=== PATIENT | female | born 1985 | race Caucasian/White ===

== ENCOUNTER 2017-07-08 13:06 | Emergency (ER) | payer OTHER ==
[2017-07-08 13:20] VITALS: BP 119/81
--- NOTE | 2017-07-08 14:19 | ER Document Report ---
ED Medical Screen (RME) - General Chief Complaint: Abdominal Pain Stated Complaint: ABDOMINAL PAIN Time Seen by Provider: 07/08/17 14:14 Mode of Arrival: Ambulatory Information source: Patient Notes: 31 yr old female presents with sudden 1 hour duration of RLQ pain. pt denies any vaginal bleeding discharge or urinary complaints I have greeted and performed a rapid initial assessment of this patient. A comprehensive ED assessment and evaluation of the patient, analysis of test results and completion of the medical decision making process will be conducted by additional ED providers. PHYSICAL EXAMINATION: GENERAL: Well-appearing, well-nourished and in no acute distress. HEAD: Atraumatic, normocephalic. EYES: Pupils equal round extraocular movements intact, conjunctiva are normal. ENT: Nares patent NECK: Normal range of motion LUNGS: No respiratory distress Musculoskeletal: Normal range of motion NEUROLOGICAL: Normal speech, normal gait. PSYCH: Normal mood, normal affect. SKIN: Warm, Dry, normal turgor, no rashes or lesions noted. TRAVEL OUTSIDE OF THE [place] IN LAST 30 DAYS: No - Related Data Allergies/Adverse Reactions: bupropion [From Wellbutrin] Allergy (Unknown, Verified 07/08/17 14:13) diphenhydramine [From Benadryl] Allergy (Verified 07/08/17 13:08) Past Medical History Psychiatric Medical History: Reports: Hx Anxiety Physical Exam - Vital signs Vitals: Temp Pulse Resp BP Pulse Ox 98.9 F 96 16 119/81 98 07/08/17 13:18 07/08/17 13:18 07/08/17 13:18 07/08/17 13:18 07/08/17 13:18 Course - Vital Signs Vital signs: Temp Pulse Resp BP Pulse Ox 98.9 F 96 16 119/81 98 07/08/17 13:18 07/08/17 13:18 07/08/17 13:18 07/08/17 13:18 07/08/17 13:18
--- NOTE | 2017-07-08 14:49 | ER Document Report ---
ED General - General Chief Complaint: Abdominal Pain Stated Complaint: ABDOMINAL PAIN Time Seen by Provider: 07/08/17 14:14 Mode of Arrival: Ambulatory Information source: Patient Notes: 31-year-old female with history of fibrodysplasia, chronic headache, presents with complaint of sudden onset of right lower quadrant pain that started 2 hours prior to arrival. Patient states while at work she experienced a stabbing pain in her right lower quadrant. She denies any prior similar symptoms. She had associated nausea without vomiting. She denies any fever, chills, dysuria, hematuria, vaginal discharge. She is sexually active with her . Not currently on control. Last menstrual period 1 month prior to arrival. TRAVEL OUTSIDE OF THE [place] IN LAST 30 DAYS: No - HPI Onset: Just prior to arrival Onset/Duration: Sudden, Constant Quality of pain: Stabbing Severity: Moderate Pain Level: 2 Associated symptoms: Nausea. denies: Chills, Diarrhea, Fever, Vomiting Exacerbated by: Movement Relieved by: Denies Similar symptoms previously: No Recently seen / treated by doctor: No - Related Data Allergies/Adverse Reactions: bupropion [From Wellbutrin] Allergy (Unknown, Verified 07/08/17 14:13) diphenhydramine [From Benadryl] Allergy (Verified 07/08/17 13:08) Past Medical History - General Information source: Patient - Social History Smoking Status: Current Every Day Smoker Chew tobacco use (# tins/day): No Frequency of alcohol use: Occasional Drug Abuse: None Family History: Reviewed & Not Pertinent Patient has suicidal ideation: No Patient has homicidal ideation: No - Medical History Notes: Fibromyalgia, chronic headaches, fibrodysplasia. Pulmonary Medical History: Reports: None EENT Medical History: Reports: None Neurological Medical History: Reports: None Endocrine Medical History: Reports: None Renal/ Medical History: Denies: Hx Kidney Stones, Hx Peritoneal Dialysis, Hx Renal Insufficiency Malignancy Medical History: Reports: None GI Medical History: Reports: None Musculoskeltal Medical History: Reports Hx Fibromyalgia Skin Medical History: Reports None Psychiatric Medical History: Reports: None, Hx Anxiety Other: craniotomy - Immunizations Immunizations up to date: Yes Review of Systems - Review of Systems Constitutional: denies: Chills, Fever EENT: No symptoms reported Cardiovascular: No symptoms reported Respiratory: No symptoms reported Gastrointestinal: Abdomen distended, Nausea. denies: Vomiting, Black stools, Rectal bleeding Genitourinary: Flank pain. denies: Burning, Dysuria, Discharge, Hematuria Female Genitourinary: Last menstrual period - 06/16/17 Musculoskeletal: No symptoms reported Skin: No symptoms reported Hematologic/Lymphatic: No symptoms reported Neurological/Psychological: No symptoms reported Physical Exam - Vital signs Vitals: Temp Pulse Resp BP Pulse Ox 98.9 F 96 16 119/81 98 07/08/17 13:18 07/08/17 13:18 07/08/17 13:18 07/08/17 13:18 07/08/17 13:18 - General General appearance: Appears well, Alert - Respiratory Respiratory status: No respiratory distress Chest status: Nontender Breath sounds: Normal Chest palpation: Normal - Cardiovascular Rhythm: Regular Heart sounds: Normal auscultation Murmur: No - Abdominal Inspection: Normal Distension: No distension Bowel sounds: Normal Tenderness: Nontender, Tender, Other - RLQ. No: McBurney's point, Quiros's sign Organomegaly: No organomegaly - Genitourinary External exam: No: Lesions Speculum exam: Normal. No: Lesions Vaginal bleeding: None Bimanuel exam: Normal. No: Cervical motion tender, Adnexal mass - Back Back: Normal, Nontender, CVA tenderness - left - Extremities General upper extremity: Normal inspection, Nontender, Normal color, Normal ROM , Normal temperature General lower extremity: Normal inspection, Nontender, Normal color, Normal ROM , Normal temperature, Normal weight bearing. No: Sameera's sign - Neurological Neuro grossly intact: Yes Cognition: Normal Orientation: AAOx4 [place] Coma Scale Eye Opening: Spontaneous [place] Coma Scale Verbal: Oriented [place] Coma Scale Motor: Obeys Commands [place] Coma Scale Total: 15 Speech: Normal Motor strength normal: LUE, RUE, LLE, RLE Sensory: Normal - Psychological Associated symptoms: Normal affect, Normal mood - Skin Skin Temperature: Warm Skin Moisture: Dry Skin Color: Normal Course - Re-evaluation Re-evalutation: 07/08/17 16:46 31-year-old female presents with complaint of right lower quadrant pain that started 2 hours prior to arrival. Upon arrival vitals reviewed and within normal limits. Patient does not appear toxic or dehydrated. She is in no acute distress. Physical exam is significant for right lower quadrant tenderness and left CVA tenderness. Patient received Toradol for pain. Bedside ultrasound was performed and showed no significant hydronephrosis. pelvic exam was within normal limits. CT of the abdomen and pelvis was obtained to assess for nephrolithiasis. This was within normal limits. Transvaginal ultrasound to assess for ovarian torsion was also performed and within normal limits. Patient was discharged home in improved condition. Advised to follow-up with her primary care physician. 07/08/17 18:48 Laboratory 07/08/17 07/08/17 07/08/17 14:20 14:20 14:20 WBC 10.5 RBC 4.47 Hgb 12.6 Hct 37.6 MCV 84 MCH 28.1 MCHC 33.4 RDW 15.4 H Plt Count 268 Seg Neutrophils % 66.6 Lymphocytes % 23.6 Monocytes % 5.2 Eosinophils % 4.2 Basophils % 0.4 Absolute Neutrophils 7.0 Absolute Lymphocytes 2.5 Absolute Monocytes 0.5 Absolute Eosinophils 0.4 Absolute Basophils 0.0 Sodium 141.3 Potassium 4.0 Chloride 105 Carbon Dioxide 25 Anion Gap 11 BUN 11 Creatinine 0.73 Est GFR ( Amer) > 60 Est GFR (Non-Af Amer) > 60 Glucose 84 Calcium 9.7 Total Bilirubin 0.4 Direct Bilirubin 0.3 Neonat Total Bilirubin Not Reportable Neonat Direct Bilirubin Not Reportable Neonat Indirect Bili Not Reportable AST 14 ALT 19 Alkaline Phosphatase 52 Total Protein 7.5 Albumin 4.6 Lipase 66.2 Urine Color YELLOW Urine Appearance CLEAR Urine pH 6.0 Ur Specific [place] 1.010 Urine Protein NEGATIVE Urine Glucose (UA) NEGATIVE Urine Ketones NEGATIVE Urine Blood NEGATIVE Urine Nitrite NEGATIVE Urine Bilirubin NEGATIVE Urine Urobilinogen NEGATIVE Ur Leukocyte Esterase NEGATIVE Urine WBC (Auto) 1 Urine RBC (Auto) 0 Urine Bacteria (Auto) TRACE Squamous Epi Cells Auto 1 Urine Mucus (Auto) RARE Urine Ascorbic Acid NEGATIVE Urine HCG, Qual NEGATIVE Epi Cells (Wet Prep) Bacteria (Wet Prep) Trichomonas (Wet Prep) Vaginal WBC Vaginal RBC Vaginal Yeast Chlamydia DNA (PCR) N.gonorrhoeae DNA (PCR) 07/08/17 07/08/17 15:15 15:15 WBC RBC Hgb Hct MCV MCH MCHC RDW Plt Count Seg Neutrophils % Lymphocytes % Monocytes % Eosinophils % Basophils % Absolute Neutrophils Absolute Lymphocytes Absolute Monocytes Absolute Eosinophils Absolute Basophils Sodium Potassium Chloride Carbon Dioxide Anion Gap BUN Creatinine Est GFR ( Amer) Est GFR (Non-Af Amer) Glucose Calcium Total Bilirubin Direct Bilirubin Neonat Total Bilirubin Neonat Direct Bilirubin Neonat Indirect Bili AST ALT Alkaline Phosphatase Total Protein Albumin Lipase Urine Color Urine Appearance Urine pH Ur Specific [place] Urine Protein Urine Glucose (UA) Urine Ketones Urine Blood Urine Nitrite Urine Bilirubin Urine Urobilinogen Ur Leukocyte Esterase Urine WBC (Auto) Urine RBC (Auto) Urine Bacteria (Auto) Squamous Epi Cells Auto Urine Mucus (Auto) Urine Ascorbic Acid Urine HCG, Qual Epi Cells (Wet Prep) 4+ EPITHELIALS SEEN Bacteria (Wet Prep) 4+ BACTERIA SEEN Trichomonas (Wet Prep) NO TRICHOMONAS SEEN Vaginal WBC 1+ WBCS SEEN Vaginal RBC NO RBCS SEEN Vaginal Yeast NO YEAST SEEN Chlamydia DNA (PCR) NOT DETECTED N.gonorrhoeae DNA (PCR) NOT DETECTED Abdomen/Pelvis CT 07/08/17 15:22 IMPRESSION: NO SIGNIFICANT OR ACUTE PROCESS IN THE ABDOMEN OR PELVIS. Transvaginal US 07/08/17 16:22 IMPRESSION: NORMAL TRANSVAGINAL PELVIC ULTRASOUND. - Vital Signs Vital signs: Temp Pulse Resp BP Pulse Ox 98.9 F 96 16 119/81 98 07/08/17 13:18 07/08/17 13:18 07/08/17 13:18 07/08/17 13:18 07/08/17 13:18 - Laboratory Result Diagrams: 07/08/17 14:20 07/08/17 14:20 Laboratory results interpreted by me: 07/08/17 14:20 RDW 15.4 H Procedures - Pelvic Exam Pelvic exam Cultures obtained: Yes Wet prep obtained: Yes Herpes culture obtained: No POC sent to lab: Yes Bimanual exam performed: Yes - Cervical motion tenderness, no adnexal tenderness or masses. Discharge - Discharge Clinical Impression: Right lower quadrant abdominal pain Condition: Good Disposition: HOME, SELF-CARE Instructions: Abdominal Pain ([facility]), Antinausea Medication ([facility]), Toradol Injection ([facility]) Additional Instructions: strain your urine. [place] Return to the emergency department with worsening or recurring pain. Prescriptions: Hydrocodone/Acetaminophen [[place] 5-325 mg Tablet] 1 tab PO Q6 2 Days #8 tablet Ondansetron HCl [Zofran 4 mg Tablet] 1 - 2 tab PO Q4H PRN #10 tablet PRN Reason: Forms: Return to Work
[2017-07-08 14:52] LABS: ABSOLUTE EOSINOPHILS # (AUTO) 0.4 10^3/uL (0.0-0.6); ABSOLUTE LYMPHOCYTES (AUTO) 2.5 10^3/uL (0.5-4.7); ABSOLUTE MONOCYTES (AUTO) 0.5 10^3/uL (0.1-1.4); APPEARANCE,URINE CLEAR; BASOPHILS % (AUTO) 0.4 % (0-2); BILIRUBIN,URINE NEGATIVE (NEGATIVE); COLOR,URINE YELLOW; EOSINOPHILS % (AUTO) 4.2 % (0-6); GLUCOSE, URINE NEGATIVE (NEGATIVE); HEMATOCRIT 37.6 % (36.0-47.0); HEMOGLOBIN 12.6 g/dL (12.0-15.5); KETONES,URINE NEGATIVE (NEGATIVE); LEUKOCYTE ESTERASE,URINE NEGATIVE (NEGATIVE); LYMPHOCYTES % (AUTO) 23.6 % (13-45); MEAN CORPUSCULAR HEMOGLOBIN 28.1 pg (27.0-33.4); MEAN CORPUSCULAR HGB CONC 33.4 g/dL (32.0-36.0); MEAN CORPUSCULAR VOLUME 84 fl (80-97); MONOCYTES % (AUTO) 5.2 % (3-13); NITRITE,URINE NEGATIVE (NEGATIVE); PLATELET COUNT 268 10^3/uL (150-450); PROTEIN,URINE NEGATIVE (NEGATIVE); RED BLOOD COUNT 4.47 10^6/uL (3.72-5.28); RED CELL DISTRIBUTION WIDTH 15.4 % (11.5-14.0); SEGMENTED NEUTROPHILS % (AUTO) 66.6 % (42-78); TOTAL CELLS COUNTED % (AUTO) 100 %; UROBILINOGEN,URINE NEGATIVE mg/dL (<2.0); WHITE BLOOD COUNT 10.5 10^3/uL (4.0-10.5)
[2017-07-08 15:10] LABS: ALANINE AMINOTRANSFERASE 19 U/L (9-52); ALBUMIN 4.6 g/dL (3.5-5.0); ALKALINE PHOSPHATASE 52 U/L (38-126); ANION GAP 11 (5-19); ASPARTATE AMINO TRANSFERASE 14 U/L (14-36); BILIRUBIN,DIRECT 0.3 mg/dL (0.0-0.4); BILIRUBIN,TOTAL 0.4 mg/dL (0.2-1.3); BLOOD UREA NITROGEN 11 mg/dL (7-20); CALCIUM 9.7 mg/dL (8.4-10.2); CARBON DIOXIDE 25 mmol/L (22-30); CHLORIDE 105 mmol/L (98-107); GLUCOSE 84 mg/dL (75-110); LIPASE 66.2 U/L (23-300); SODIUM 141.3 mmol/L (137-145); TOTAL PROTEIN 7.5 g/dL (6.3-8.2)
[2017-07-08 15:39] LABS: BACTERIA (WET MOUNT) 4+ BACTERIA SEEN; EPITHELIALS (WET MOUNT) 4+ EPITHELIALS SEEN; RBCS (WET MOUNT) NO RBCS SEEN; T.VAGINALIS (WET MOUNT) NO TRICHOMONAS SEEN; WBCS (WET MOUNT) 1+ WBCS SEEN; YEAST (WET MOUNT) NO YEAST SEEN
--- NOTE | 2017-07-08 16:12 | RADIOLOGY REPORT (SQ) ---
EXAM DESCRIPTION: CT ABD/PELVIS NO ORAL OR IV COMPLETED DATE/TIME: 07/08/2017 3:47 pm REASON FOR STUDY: rlq pain mild hydro on bedside us COMPARISON: None. TECHNIQUE: CT scan of the abdomen and pelvis performed without intravenous or oral contrast. Images reviewed with lung, soft tissue, and bone windows. Reconstructed coronal and sagittal MPR images revi ewed. All images stored on PACS. All CT scanners at this facility use dose modulation, iterative reconstruction, and/or weight based d osing when appropriate to reduce radiation dose to as low as reasonably achievable (ALARA). [facility]: Dose Right [facility]: CareDose [facility]: Dose Right [facility]: Teradose 4D [facility]: Smart [place] RADIATION DOSE: CT Rad equipment meets quality standard of care and radiation dose reduction techniq ues were employed. CTDIvol: 5.8 mGy. DLP: 293 mGy-cm.mGy. LIMITATIONS: None. FINDINGS: LOWER CHEST: Tiny 6 mm nodule is identified in the right lower lung field best seen on [place] 5. No acute consolidations or pleural effusions are identified NON-CONTRASTED LIVER, SPLEEN, ADRENALS: Evaluation limited by lack of IV contrast. No identified sign ificant masses. PANCREAS: No masses. No peripancreatic inflammatory changes. GALLBLADDER: No identified stones by CT criteria. No inflammatory changes to suggest cholecystitis. RIGHT KIDNEY AND URETER: No suspicious masses. Assessment limited by lack of IV contrast. No signif icant calcifications. No hydronephrosis or hydroureter. LEFT KIDNEY AND URETER: No suspicious masses. Assessment limited by lack of IV contrast. No signifi cant calcifications. No hydronephrosis or hydroureter. AORTA AND RETROPERITONEUM: No aneurysm. No retroperitoneal masses or adenopathy. BOWEL AND PERITONEAL CAVITY: No obvious masses or inflammatory changes. No free fluid. APPENDIX: Normal. PELVIS, BLADDER, AND ABDOMINAL WALL:No abnormal masses. No free fluid. Bladder normal. BONES: No significant findings. OTHER: No other significant finding. IMPRESSION: NO SIGNIFICANT OR ACUTE PROCESS IN THE ABDOMEN OR PELVIS. COMMENT: Quality ID # [id number]: Final reports with documentation of one or more dose reduction techniques (e.g., Automated exposure control, adjustment of the mA and/or kV according to patient size, use of iterative reconstruction technique) TECHNICAL DOCUMENTATION: JOB ID: [id number] [employer]- All Rights Reserved Reading location - IP/workstation name: [email or web address]
[2017-07-08] MEDS ORDERED: KETOROLAC TROMETHAMINE INJ/PF 30 MG/1 ML SDV IV ONE (16:24)
[2017-07-08] MEDS ORDERED: KETOROLAC TROMETHAMINE 60 MG/2 ML SDV IM ONE (16:32)
[2017-07-08 17:00] LABS: CHLAM PCR NOT DETECTED (NOT DETECT); GON PCR NOT DETECTED (NOT DETECT)
--- NOTE | 2017-07-08 17:41 | RADIOLOGY REPORT (SQ) ---
EXAM DESCRIPTION: U/S NON OB PEL TV W/DOPPLER COMPLETED DATE/TIME: 07/08/2017 5:20 pm REASON FOR STUDY: rule out torsion COMPARISON: None. TECHNIQUE: Dynamic and static grayscale images acquired of the pelvis via transvaginal approach and recorded on PACS. Additional selected color Doppler and spectral images recorded. LIMITATIONS: None. FINDINGS: UTERUS: Contour normal. No mass. ENDOMETRIAL STRIPE: No focal or generalized thickening. No masses. CERVIX: No nabothian cysts. RIGHT OVARY: No abnormal masses. RIGHT OVARY DOPPLER: Normal arterial vascular flow without evidence for torsion. LEFT OVARY: No abnormal masses. LEFT OVARY DOPPLER: Normal arterial vascular flow without evidence for torsion. FREE FLUID: None noted. OTHER: No other significant finding. MEASUREMENTS: UTERUS: 5.8 x 6.8 x 8.9 cm. ENDOMETRIAL STRIPE: 14 mm. RIGHT OVARY: 2.2 x 2.3 x 2.9 cm. LEFT OVARY: 1.8 x 2.3 x 3.8 cm. IMPRESSION: NORMAL TRANSVAGINAL PELVIC ULTRASOUND. TECHNICAL DOCUMENTATION: JOB ID: [id number]- All Rights Reserved Reading location - IP/workstation name: [email or web address]
== END 2017-07-08 18:29 | disposition home or self-care (01) ==
LOC: ER 13:06
DX: R10.31 Right lower quadrant pain (principal); R10.813 Right lower quadrant abdominal tenderness; R14.0 Abdominal distension (gaseous); R11.0 Nausea; Z88.8 Allergy status to other drugs, medicaments and biological substances; F17.200 Nicotine dependence, unspecified, uncomplicated
CPT/HCPCS: 99284; 96374; 36415; 87210; 83690; 85025; 81025; 80053; 81001; 87491; 87591; 76830; 93976; 74176; J1885

== ENCOUNTER 2017-11-23 09:56 | Emergency (ER) | payer OTHER ==
--- NOTE | 2017-11-23 10:22 | ER Document Report ---
ED Medical Screen (RME) - General Chief Complaint: Headache Stated Complaint: RIGHT SIDE PAIN Time Seen by Provider: 11/23/17 10:18 Notes: RAPID MEDICAL EVALUATION DISCLOSURE I have seen this patient as part of a Rapid Medical Evaluation and, if applicable, placed any initially appropriate orders. The patient will be seen and fully evaluated, including a full history and physical exam, by a provider ( in Main ED or Fast Track) when a room becomes available. 31-year-old female PMH fibrodysplasia here with complaints of headache that started about 1 hour ago accompanied with right-sided facial drooping and "heaviness" as well as right eye swelling. She states that she has a history of skull tumor removal several years ago at [facility] and has a piece of bone missing on the right side of her skull and the she was told to avoid bending over as spinal fluid may leak into her face. She is concerned that she may have some more tumors or that spinal fluid has leaked into her face. EXAM Abnormal facial sensation right V1 V2 but normal V3 Strength 5/5 with intact sensation all extremities TRAVEL OUTSIDE OF THE [place] IN LAST 30 DAYS: No - Related Data Allergies/Adverse Reactions: bupropion [From Wellbutrin] Allergy (Unknown, Verified 07/08/17 14:13) diphenhydramine [From Benadryl] Allergy (Verified 07/08/17 13:08) Past Medical History Renal/ Medical History: Denies: Hx Kidney Stones, Hx Peritoneal Dialysis, Hx Renal Insufficiency Musculoskeltal Medical History: Reports Hx Fibromyalgia Psychiatric Medical History: Reports: Hx Anxiety - Immunizations Immunizations up to date: Yes Physical Exam - Vital signs Vitals: Temp Pulse Resp BP Pulse Ox 99.0 F 87 18 122/85 97 11/23/17 10:04 11/23/17 10:04 11/23/17 10:04 11/23/17 10:04 11/23/17 10:04 Course - Vital Signs Vital signs: Temp Pulse Resp BP Pulse Ox 99.0 F 87 18 122/85 97 11/23/17 10:04 11/23/17 10:04 11/23/17 10:04 11/23/17 10:04 11/23/17 10:04
[2017-11-23 10:34] LABS: ABSOLUTE BASOPHILS # (AUTO) 0.1 10^3/uL (0.0-0.2); ABSOLUTE EOSINOPHILS # (AUTO) 0.4 10^3/uL (0.0-0.6); ABSOLUTE LYMPHOCYTES (AUTO) 2.1 10^3/uL (0.5-4.7); ABSOLUTE MONOCYTES (AUTO) 0.6 10^3/uL (0.1-1.4); ABSOLUTE NEUT (AUTO) 8.8 10^3/uL (1.7-8.2); BASOPHILS % (AUTO) 0.5 % (0-2); EOSINOPHILS % (AUTO) 3.5 % (0-6); HEMATOCRIT 37.5 % (36.0-47.0); HEMOGLOBIN 12.3 g/dL (12.0-15.5); LYMPHOCYTES % (AUTO) 17.7 % (13-45); MEAN CORPUSCULAR HEMOGLOBIN 26.8 pg (27.0-33.4); MEAN CORPUSCULAR HGB CONC 32.7 g/dL (32.0-36.0); MEAN CORPUSCULAR VOLUME 82 fl (80-97); PLATELET COUNT 271 10^3/uL (150-450); RED BLOOD COUNT 4.58 10^6/uL (3.72-5.28); SEGMENTED NEUTROPHILS % (AUTO) 73.3 % (42-78); TOTAL CELLS COUNTED % (AUTO) 100 %; WHITE BLOOD COUNT 12.1 10^3/uL (4.0-10.5)
[2017-11-23 10:55] LABS: ANION GAP 11 (5-19); BLOOD UREA NITROGEN 13 mg/dL (7-20); CALCIUM 9.8 mg/dL (8.4-10.2); CARBON DIOXIDE 25 mmol/L (22-30); CHLORIDE 107 mmol/L (98-107); GLUCOSE 90 mg/dL (75-110); POTASSIUM 4.5 mmol/L (3.6-5.0); SODIUM 143.1 mmol/L (137-145)
--- NOTE | 2017-11-23 11:15 | RADIOLOGY REPORT (SQ) ---
EXAM DESCRIPTION: CT HEAD WITHOUT COMPLETED DATE/TIME: 11/23/2017 10:54 am REASON FOR STUDY: R facial droop, abnl sensation, hx tumors; eval COMPARISON: 12/17/2014 TECHNIQUE: Axial images acquired through the brain without intravenous contrast. Images reviewed wi th bone, brain and subdural windows. Additional sagittal and coronal reconstructions were generated. Images stored on PACS. All CT scanners at this facility use dose modulation, iterative reconstruction, and/or weight based d osing when appropriate to reduce radiation dose to as low as reasonably achievable (ALARA). [facility]: Dose Right [facility]: CareDose [facility]: Dose Right [facility]: Teradose 4D [facility]: Smart [place] RADIATION DOSE: CT Rad equipment meets quality standard of care and radiation dose reduction techniq ues were employed. CTDIvol: 48.6 mGy. DLP: 905 mGy-cm. mGy. LIMITATIONS: None. FINDINGS: VENTRICLES: Normal size and contour. CEREBRUM: No masses. No hemorrhage. No midline shift. No evidence for acute infarction. Normal gra y/white matter differentiation. No areas of low density in the white matter. CEREBELLUM: No masses. No hemorrhage. No alteration of density. No evidence for acute infarction. EXTRAAXIAL SPACES: No fluid collections. No masses. ORBITS AND GLOBE: No intra- or extraconal masses. Normal contour of globe without masses. CALVARIUM: Status post right-sided craniotomy. PARANASAL SINUSES: Moderate mucosal thickening and possible small air-fluid level in right sphenoid s inus raising possibility of acute sinusitis. Minimal mucosal thickening in the left ethmoid maxillar y sinus. SOFT TISSUES: No mass or hematoma. OTHER: No other significant finding. IMPRESSION: 1. Status post craniotomy on the right. 2. No acute abnormalities involving the brain on noncontrast CT. 3. Right sphenoid sinusitis possibly acute. EVIDENCE OF ACUTE STROKE: NO. COMMENT: Quality ID # [id number]: Final reports with documentation of one or more dose reduction techniques (e.g., Automated exposure control, adjustment of the mA and/or kV according to patient size, use of iterative reconstruction technique) TECHNICAL DOCUMENTATION: JOB ID: [id number] [employer]- All Rights Reserved Reading location - IP/workstation name: [email or web address]
--- NOTE | 2017-11-23 12:23 | ER Document Report ---
ED General - General Chief Complaint: Headache Stated Complaint: RIGHT SIDE PAIN Time Seen by Provider: 11/23/17 10:18 Mode of Arrival: Ambulatory Information source: Patient TRAVEL OUTSIDE OF THE [place] IN LAST 30 DAYS: No - HPI Notes: 31-year-old female with a history of chronic headaches, fibromyalgia and craniotomy due to [facility] presents to the ED today for complaints of headache, right sided head pressure, right facial eye swelling, right ear pain that started today. Patient denies any facial drooping or eye drooping, denies any facial weakness or paralysis. Has not tried any hams-yll-kpdjbuk medication. Pain is worse with bending over and has experienced some teeth pain as well. headache pain is 6 out of 10, sharp, worse with bending over and tooth pain. 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 Denies any trauma to head. Denies fevers, chills, chest pain,palpitations, shortness of breath, dyspnea, nausea, vomiting, diarrhea, abdominal pain, hematuria,blurred vision, double vision, loss of vision, speech changes, LH, dizziness, syncope, wheezing, ST, URI, neck pain, weakness, bowel or bladder dysfunction, saddle anesthesia, numbness or tingling in bilateral upper or lower extremities equally , muscle paralysis, weakness in bilateral upper or lower extremities equally or rash. Denies IV drug use. - Related Data Allergies/Adverse Reactions: bupropion [From Wellbutrin] Allergy (Unknown, Verified 07/08/17 14:13) diphenhydramine [From Benadryl] Allergy (Verified 07/08/17 13:08) Past Medical History - General Information source: Patient - Social History Smoking Status: Current Every Day Smoker Frequency of alcohol use: Occasional Family History: Reviewed & Not Pertinent Patient has suicidal ideation: No Patient has homicidal ideation: No Renal/ Medical History: Denies: Hx Kidney Stones, Hx Peritoneal Dialysis, Hx Renal Insufficiency Musculoskeletal Medical History: Reports Hx Fibromyalgia Psychiatric Medical History: Reports: Hx Anxiety - Immunizations Immunizations up to date: Yes Review of Systems - Review of Systems Constitutional: No symptoms reported EENT: See HPI, Sinus pressure Cardiovascular: No symptoms reported Respiratory: No symptoms reported Gastrointestinal: No symptoms reported Genitourinary: No symptoms reported Female Genitourinary: No symptoms reported Musculoskeletal: No symptoms reported Skin: No symptoms reported Hematologic/Lymphatic: No symptoms reported Neurological/Psychological: See HPI, Headaches Physical Exam - Vital signs Vitals: Temp Pulse Resp BP Pulse Ox 99.0 F 87 18 122/85 97 11/23/17 10:04 11/23/17 10:04 11/23/17 10:04 11/23/17 10:04 11/23/17 10:04 - Notes Notes: PHYSICAL EXAMINATION: GENERAL: Well-appearing, well-nourished and in no acute distress. HEAD: Atraumatic, normocephalic. EYES: Pupils equal round and reactive to light, extraocular movements intact, conjunctiva are normal. ENT: Nares patent, oropharynx clear without exudates. Moist mucous membranes. NECK: Normal range of motion, supple without lymphadenopathy LUNGS: Breath sounds clear to auscultation bilaterally and equal. No wheezes rales or rhonchi. HEART: Regular rate and rhythm without murmurs ABDOMEN: Soft, nontender, nondistended abdomen. No guarding, no rebound. No masses appreciated. Female : deferred Musculoskeletal: Normal range of motion, no pitting or edema. No cyanosis. NEUROLOGICAL: Cranial nerves grossly intact. Normal speech, normal gait. No bulging to right frontal area were synthetic bone, normal sensory, motor exams. PERRLA, EOMI. Full motor and sensory function throughout. Mechanic Sound Technician + 2 equal bilaterally in BUE. Tongue midline. No pronator drift. No ataxia. Neck with APROM. Raises eyebrows. Strength is 5 out of 5 in bilateral upper and lower extremities equally.Speaks in full sentences. No weakness on one side. Romberg gait steady able to walk straight line. Able to recall 5 objects. PSYCH: Normal mood, normal affect. SKIN: Warm, Dry, normal turgor, no rashes or lesions noted. 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 CT of head without contrast shows patient has moderate mucosal thickening and possible small air-fluid level in right sesamoid sinus with a possibility of acute sinusitis, noted minimal mucosal thickening in the left ethmoid and maxillary sinus. CT otherwise is normal, no evidence of stroke cerebral swelling or midline shift. Discussed with patient that her symptoms are congruent with sinusitis patient was very anxious about the possibility of having CSF leakage to face, documented in triage note that patient had right facial drooping eyelid drooping however patient denies ever having this and states she had right eye swelling. Denies any focal neurological deficits. Neurological exam all within normal limits. Spoke with Dr. Shima Castanon, who did not read initial CT evaluation, CT was initially read by Dr. Mark Ornelas , farm planner who read patient to have a sinusitis, Dr. Walters reviewed CT and agreed with initial diagnostic impression at 1241. Patient given a name of a local neurosurgeon Dr. Wilbert Santos since patient's neurologist are at [facility] and in [place] if she would like local follow-up. Discussed with patient signs and symptoms if she did have sees CSF leak when she does demonstrate focal neurological deficits such as neurological changes, speech changes, weaknesses, altered mental status, etc. Discussed with patient thoroughly signs and symptoms of sinusitis is and how she presented with classic symptoms of sinusitis and empathize with her distress that having a craniotomy and skull tumors can cause and it is important to be very diligent, discussed with her that she can return to the ED if she experiences any but not limited to zymptoms such as worsening headache, further facial swelling any focal neurological deficits change in mental status, fever, etc. we will prescribe patient Augmentin. After performing a Medical Screening Examination, I estimate there is LOW risk for ACUTE GLAUCOMA, TEMPORAL ARTERITIS, MENINGITIS, INCRANIAL HEMORRHAGE, or ISCHEMIC STROKE thus I consider the discharge disposition reasonable. I have reevaluated this patient multiple times and no significant life threatening changes are noted. The patient and I have discussed the diagnosis and risks, and we agree with discharging home with close follow-up with the understanding that symptoms and presentations can change. We also discussed returning to the Emergency Department immediately if new or worsening symptoms occur. We have discussed the symptoms which are most concerning (e.g., changing or worsening symptoms, new numbness or weakness, vomiting, fever) that necessitate immediate return. - Vital Signs Vital signs: Temp Pulse Resp BP Pulse Ox 98.9 F 70 16 112/73 99 11/23/17 13:05 11/23/17 13:05 11/23/17 13:05 11/23/17 13:05 11/23/17 13:05 - Laboratory Result Diagrams: 11/23/17 10:24 11/23/17 10:24 Laboratory results interpreted by me: 11/23/17 10:24 WBC 12.1 H MCH 26.8 L RDW 17.0 H Absolute Neutrophils 8.8 H Discharge - Discharge Clinical Impression: Sinusitis, acute Qualifiers: Sinusitis location: sphenoidal Recurrence: non-recurrent Qualified Code(s): J01.30 - Acute sphenoidal sinusitis, unspecified Condition: Stable Disposition: HOME, SELF-CARE Instructions: Headache ([facility]), Sinusitis ([facility]) Additional Instructions: Your CT of your head shows that you have an acute right sinusitis. Her CT was otherwise normal. Advised to follow-up with your neurosurgeons at [facility] as well as male however he also can see a Dr. Wilbert Santos, who is a neurosurgeon in [place] for follow-up regarding headache. Take antibiotics as directed with food. Eat yogurt daily to prevent loose stool. Follow-up with your primary care provider within the next 3 days. Work note given. Increase oral hydration. Return immediately for any new or worsening symptoms. Follow up with primary care provider, call tomorrow to make followup appointment. Prescriptions: Amox Tr/Potassium Clavulanate [Augmentin 875-125 Tablet] 1 tab PO BID 10 Days # 20 tablet Forms: Return to Work Referrals: WILBERT SANTOS MD [COMMUNITY BASED STAFF] - Follow up in 3-5 days STEPHEN MCGREGOR MD [ACTIVE STAFF] - Follow up in 3-5 days
[2017-11-23 13:07] VITALS: BP 112/73
== END 2017-11-23 13:07 | disposition home or self-care (01) ==
LOC: ER 09:56
DX: J01.30 Acute sphenoidal sinusitis, unspecified (principal); R51 Headache; H92.01 Otalgia, right ear; F17.200 Nicotine dependence, unspecified, uncomplicated
CPT/HCPCS: 36415; 70450; 80048; 85025; 99284

== ENCOUNTER 2018-07-29 12:52 | Emergency (ER) | payer OTHER ==
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
--- NOTE | 2018-07-29 14:51 | RADIOLOGY REPORT (SQ) ---
EXAM DESCRIPTION: CT HEAD WITHOUT COMPLETED DATE/TIME: 07/29/2018 2:45 pm REASON FOR STUDY: Right-sided headache with eyelid drooping COMPARISON: 11/23/2017 TECHNIQUE: Axial images acquired through the brain without intravenous contrast. Images reviewed wi th bone, brain and subdural windows. Additional sagittal and coronal reconstructions were generated. Images stored on PACS. All CT scanners at this facility use dose modulation, iterative reconstruction, and/or weight based d osing when appropriate to reduce radiation dose to as low as reasonably achievable (ALARA). [facility]: Dose Right [facility]: CareDose [facility]: Dose Right [facility]: Teradose 4D [facility]: Smart NetProspex RADIATION DOSE: CT Rad equipment meets quality standard of care and radiation dose reduction techniq ues were employed. CTDIvol: 53.2 mGy. DLP: 1044 mGy-cm. mGy. LIMITATIONS: None. FINDINGS: VENTRICLES: Normal size and contour. CEREBRUM: No masses. No hemorrhage. No midline shift. No evidence for acute infarction. Normal gra y/white matter differentiation. No areas of low density in the white matter. CEREBELLUM: No masses. No hemorrhage. No alteration of density. No evidence for acute infarction. EXTRAAXIAL SPACES: No fluid collections. No masses. ORBITS AND GLOBE: No intra- or extraconal masses. Normal contour of globe without masses. CALVARIUM: Stable postoperative findings of right pterional craniotomy. PARANASAL SINUSES: No fluid or mucosal thickening. SOFT TISSUES: No mass or hematoma. OTHER: No other significant finding. IMPRESSION: No acute intracranial pathology. Stable postoperative findings of right pterional crani otomy. No acute noncontrast CT findings to explain headache. EVIDENCE OF ACUTE STROKE: NO. COMMENT: Quality ID # [id number]: Final reports with documentation of one or more dose reduction techniques (e.g., Automated exposure control, adjustment of the mA and/or kV according to patient size, use of iterative reconstruction technique) TECHNICAL DOCUMENTATION: JOB ID: [id number] [employer]- All Rights Reserved Reading location - IP/workstation name: [email or web address]
[2018-07-29] MEDS ORDERED: MECLIZINE HCL 25 MG TABLET PO ONE (15:10)
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
[2018-07-29 16:00] VITALS: BP 115/85
== END 2018-07-29 16:00 | disposition home or self-care (01) ==
LOC: ER 12:52
DX: R42 Dizziness and giddiness (principal); R11.0 Nausea; R51 Headache; F17.200 Nicotine dependence, unspecified, uncomplicated; Z88.8 Allergy status to other drugs, medicaments and biological substances; Z98.890 Other specified postprocedural states
CPT/HCPCS: 70450; 99284